=== PATIENT | male | born 1980 | race Caucasian/White ===

== ENCOUNTER 2019-01-16 10:01 | Emergency (ER) | payer OTHER ==
[~2019-01-16] VITALS: Ht 185.4 cm; Wt 104.8 kg
[~2019-01-16 10:01] MED LIST: NEXIUM40 MG; PHENERGAN 25 MG25 M1 PO; VENTOLIN17 GM; ZANTAC 150MG T150 M1 PO
[2019-01-16 10:38] LABS: URINE BLOOD NEGATIVE (Negative); URINE CLARITY CLEAR; URINE COLOR YELLOW; URINE GLUCOSE-RANDOM NEGATIVE (Negative); URINE KETONES 1+ (Negative); URINE LEUKOCYTES-REFLEX NEGATIVE (Negative); URINE NITRITE-REFLEX NEGATIVE (Negative); URINE PROTEIN TRACE (Negative)
[2019-01-16 10:40] LABS: URINE BILIRUBIN 1+ (Negative)
[2019-01-16 10:41] LABS: ICTOTEST (BILI CONFIRMATORY) Negative (Negative)
[2019-01-16 10:44] LABS: HEMATOCRIT 46.6 % (42.0-52.0); MCH 31.4 pg (26.0-34.0); MCHC 34.2 g/dL (28.0-37.0); MCV 91.7 fL (80.0-100.0); MPV 8.8 fl. (7.2-11.1); NUCLEATED RBCS 0 /100WBC; PLATELET COUNT* 198 thou/uL (150-400); RBC 5.09 mil/uL (4.50-6.00); RDW-CV 12.7 % (10.5-14.5)
[2019-01-16 11:09] LABS: ALBUMIN 3.2 g/dL (3.4-5.0); CALCIUM 8.2 mg/dL (8.5-10.1); TOTAL PROTEIN 6.5 g/dL (6.4-8.2)
[2019-01-16 11:12] LABS: ABSOLUTE EOSINOPHILS 0.1 thou/uL (0.0-0.7); ABSOLUTE LYMPHOCYTES 0.3 thou/uL (0.8-5.3); ABSOLUTE MONOCYTES 0.3 thou/uL (0.0-1.2); ABSOLUTE NEUTROPHILS 8.4 thou/uL (1.6-8.1); PLATELET ESTIMATE ADEQUATE
[2019-01-16 11:22] LABS: POTASSIUM 4.8 mmol/L (3.5-5.1)
[2019-01-16 11:39] VITALS: BP 98/57
== END 2019-01-16 11:40 | disposition home or self-care (01) ==
LOC: M.ERS 10:01
PROVIDERS: Family Medicine
DX: B34.9 Viral infection, unspecified (principal)